=== PATIENT | female | born 1955 ===

== ENCOUNTER 2022-06-26 14:40 | Emergency (ER) | payer MEDICAID, OTHER ==
[~2022-06-26] VITALS: Ht 152.4 cm; Wt 95.0 kg
[2022-06-27 00:45] VITALS: BP 163/64
[2022-06-27] MEDS ORDERED: ACE3T PO (07:26)
== END 2022-06-27 08:02 | disposition home or self-care (01) ==
LOC: ER 14:40
DX: S46.911A Strain of unspecified muscle, fascia and tendon at shoulder and upper arm level, right arm, initial encounter (principal); M25.561 Pain in right knee; W18.39XA Other fall on same level, initial encounter; Y93.89 Activity, other specified; Y92.89 Other specified places as the place of occurrence of the external cause; Y99.8 Other external cause status
CPT/HCPCS: 73030; 73562